=== PATIENT | male | born 1960 | race Caucasian/White ===

== ENCOUNTER 2016-03-11 06:38 | Emergency (ER) | payer OTHER ==
--- NOTE | 2016-03-11 07:54 | ER Document Report ---
HPI - HPI Patient complains to provider of: right shoulder re injure Onset: Other - wednesday Quality of pain: Achy Pain Level: 4 Context: 56 yo male reinjured right shoulder joint when reaching out with right arm to break fall from lower ladder. Associated Symptoms: None Exacerbated by: Movement Relieved by: Denies Similar symptoms previously: Yes Recently seen / treated by doctor: No - ROS ROS below otherwise negative: Yes Systems Reviewed and Negative: Yes All other systems reviewed and negative - REPRODUCTIVE Reproductive: DENIES: : - DERM Skin Color: Normal Past Medical History - General Information source: Patient - Social History Smoking Status: Never Smoker Chew tobacco use (# tins/day): No Frequency of alcohol use: None Drug Abuse: None Lives with: Family Family History: Reviewed & Not Pertinent Patient has suicidal ideation: No Patient has homicidal ideation: No - Past Medical History Cardiac Medical History: Reports: Hx Hypertension Neurological Medical History: Reports: Hx Seizures - 2 YRS AGO GI Medical History: Reports: Hx Cirrhosis, Hx Gastroesophageal Reflux Disease, Hx Hepatitis - with varices, Hx Ulcer Musculoskeltal Medical History: Reports Hx Arthritis Infectious Medical History: Reports: Hx Hepatitis - with varices Past Surgical History: Reports: Hx Abdominal Surgery - hernia repair, Hx Orthopedic Surgery - finger - Immunizations Hx Diphtheria, Pertussis, Tetanus Vaccination: Yes Hx Pneumococcal Vaccination: 03/08/12 Vertical Provider Document - CONSTITUTIONAL Agree With Documented VS: Yes Exam Limitations: No Limitations General Appearance: Mild Distress - INFECTION CONTROL TRAVEL OUTSIDE OF THE [place] IN LAST 30 DAYS: No - HEENT HEENT: Normocephalic - NECK Neck: Supple - RESPIRATORY O2 Sat by Pulse Oximetry: 96 - MUSCULOSKELETAL/EXTREMETIES Musculoskeletal/Extremeties: Tender - right deltoia and bicep, muscle and tendon insertion at bicepital groove. He also states it hurts inside the joint. n/v intact distally. - NEURO Level of Consciousness: Awake, Alert, Appropriate - DERM Integumentary: Warm, Dry, No Rash Course - Re-evaluation Re-evalutation: 03/11/16 08:37 X-rays negative - Vital Signs Vital signs: Temp Pulse Resp BP Pulse Ox 98 F 91 16 131/77 H 96 03/11/16 06:44 03/11/16 06:44 03/11/16 06:44 03/11/16 06:44 03/11/16 06:44 Procedures - Immobilization Right Arm Time completed: 08:38 Pre-Proc Neuro Vasc Exam: Normal Immobilizer type: Sling Performed by: PCT Post-Proc Neuro Vasc Exam: Normal Alignment checked and good: Yes Discharge - Discharge Clinical Impression: reinjure to right shoulder Rotator cuff injury Qualifiers: Encounter type: subsequent encounter Laterality: right Qualified Code(s): S46.001D - Unspecified injury of muscle(s) and tendon(s) of the rotator cuff of right shoulder, subsequent encounter Condition: Good Disposition: HOME, SELF-CARE Instructions: Sling as Treatment ([facility]), Oral Narcotic Medication ([facility]) Additional Instructions: see the orthopedic doctor for [facility] [address] [facility] [address] Prescriptions: Oxycodone HCl [Oxy-Ir 5 mg Tablet] 5 mg PO Q4HP PRN #15 tab PRN Reason:
[2016-03-11] MEDS ORDERED: OXYCODONE HCL IR 5 MG TABLET PO ONE (08:13)
[2016-03-11 09:07] VITALS: BP 126/68
== END 2016-03-11 09:05 | disposition home or self-care (01) ==
LOC: ER 06:38
DX: S46.001A Unspecified injury of muscle(s) and tendon(s) of the rotator cuff of right shoulder, initial encounter (principal); X58.XXXA Exposure to other specified factors, initial encounter
CPT/HCPCS: 99283

== ENCOUNTER 2016-09-27 07:38 | Emergency (ER) | payer SELFPAY ==
[2016-09-27 07:47] VITALS: BP 159/86
--- NOTE | 2016-09-27 08:45 | ER Document Report ---
ED Extremity Problem, Lower - General Information source: Patient TRAVEL OUTSIDE OF THE [place] IN LAST 30 DAYS: No - HPI Location: Foot - right Associated symptoms: Other - see above <SINGH ALSTON - Last Filed: 09/27/16 08:35> <EDUARDO GR - Last Filed: 09/27/16 09:44> - General Chief Complaint: Foot Pain Stated Complaint: RIGHT FOOT PAIN Time Seen by Provider: 09/27/16 08:30 Notes: Patient is a 56 year old male who presents to the ED with complaints of right foot pain. Patients states he injured his foot 3 weeks ago and has since reinjurred it. Patient states he stepped on a curb sideways and rolled his foot. Patient states he also stepped on a nail. Patient states he does a lot of walking and now has a blister on the bottom of that foot. Patient also states he has an abscess from a charlie nail on his right elbow. No other concerns or complaints at this time. Patient is a recovering alcoholic, states he was in A in [place] for 8 days , went to [place] over the weekend and was relapsed and began drinking Wednesday and Wednesday and returned to the area Wednesday night. Patient is currently homeless but paid for 2 nights in a hotel. (SINGH ALSTON) - Related Data Allergies/Adverse Reactions: No Known Allergies Allergy (Verified 09/27/16 07:45) Past Medical History - General Information source: Patient - Social History Smoking Status: Never Smoker Chew tobacco use (# tins/day): No Frequency of alcohol use: recovering alcoholic Drug Abuse: None Family History: Reviewed & Not Pertinent Patient has suicidal ideation: No Patient has homicidal ideation: No - Past Medical History Cardiac Medical History: Reports: Hx Hypertension Neurological Medical History: Reports: Hx Seizures - 2 YRS AGO Renal/ Medical History: Denies: Hx Peritoneal Dialysis GI Medical History: Reports: Hx Cirrhosis, Hx Gastroesophageal Reflux Disease, Hx Hepatitis - with varices, Hx Ulcer Musculoskeltal Medical History: Reports Hx Arthritis Psychiatric Medical History: Reports: Hx Depression Infectious Medical History: Reports: Hx Hepatitis - with varices Past Surgical History: Reports: Hx Abdominal Surgery - hernia repair, Hx Orthopedic Surgery - finger - Immunizations Hx Diphtheria, Pertussis, Tetanus Vaccination: Yes Hx Pneumococcal Vaccination: 03/08/12 <SINGH ALSTON - Last Filed: 09/27/16 08:35> Review of Systems - Review of Systems Constitutional: No symptoms reported EENT: No symptoms reported Cardiovascular: No symptoms reported Respiratory: No symptoms reported Gastrointestinal: No symptoms reported Genitourinary: No symptoms reported Male Genitourinary: No symptoms reported Musculoskeletal: See HPI, Other - right foot pain Skin: See HPI, Other - blister on bottom of right foot, abscess right elbow Hematologic/Lymphatic: No symptoms reported Neurological/Psychological: No symptoms reported <SINGH ALSTON - Last Filed: 09/27/16 08:35> Physical Exam - General General appearance: Appears well, Alert In distress: None - HEENT Head: Normocephalic, Atraumatic Eyes: Normal Extraocular movements intact: Yes Pupils: PERRL - Respiratory Respiratory status: No respiratory distress Breath sounds: Normal - Cardiovascular Rhythm: Regular Heart sounds: Normal auscultation Murmur: No - Abdominal Inspection: Normal Distension: No distension - Back Back: Normal - Extremities General upper extremity: Normal ROM, Other - abscess over right elbow with mild erythema, swelling and tenderness, no fluctuance or pus General lower extremity: Normal ROM, Other - tender to palpation mostly in soft tissue of lateral right foot distal 5th metatarsal - Neurological Neuro grossly intact: Yes - Psychological Associated symptoms: Normal affect, Normal mood - Skin Skin Temperature: Warm Skin Moisture: Dry Skin Color: Normal Skin irregularity: Abscess - right elbow, with tenderness, swelling, mild erythema, no fluctuance or puss, other - mid plantar surface around ball of right foot has blistered area that is starting to heal <SINGH ALSTON - Last Filed: 09/27/16 08:35> Course - Diagnostic Test Radiology reviewed: Image reviewed, Reports reviewed - There is no acute bony abnormality seen on x-ray <EDUARDO GR - Last Filed: 09/27/16 09:44> - Vital Signs Vital signs: Temp Pulse Resp BP Pulse Ox 97.9 F 97 20 159/86 H 97 09/27/16 07:44 09/27/16 07:44 09/27/16 07:44 09/27/16 07:46 09/27/16 07:44 Discharge <GAMALIELSINGH - Last Filed: 09/27/16 08:35> <EDUARDO GR - Last Filed: 09/27/16 09:44> - Discharge Clinical Impression: Abscess of elbow Foot ulcer, limited to breakdown of skin Qualifiers: Laterality: right Qualified Code(s): L97.511 - Non-pressure chronic ulcer of other part of right foot limited to breakdown of skin Right foot sprain Qualifiers: Encounter type: initial encounter Qualified Code(s): S93.601A - Unspecified sprain of right foot, initial encounter Condition: Stable Disposition: HOME, SELF-CARE Additional Instructions: The x-ray did not show any bony abnormalities. The painful area of your foot is probably related to a sprain as you described the injury. The ulcerated area on your foot appears to be healing nicely. We will start you on antibiotics for the abscessed area on your elbow. Keep the foot ulcer clean, dressed with Neosporin ointment. Try to stay off of the foot as much as possible. Take Tylenol for pain if needed. Follow-up with a local medical doctor if not improving. Prescriptions: Sulfamethoxazole/Trimethoprim [Bactrim Ds Tablet] 2 tab PO BID #28 tablet Scribe Attestation: 09/27/16 09:39 I personally performed the services described in the documentation, reviewed and edited the documentation which was dictated to the scribe in my presence, and it accurately records my words and actions. (EDUARDO GR) Scribe Documentation - Scribe Written by Aung:: aung Meek, 09/27/2016, 0837 acting as scribe for :: Jas <SINGH ALSTON - Last Filed: 09/27/16 08:35>
--- NOTE | 2016-09-27 09:31 | RADIOLOGY REPORT (SQ) ---
EXAM DESCRIPTION: FOOT RIGHT COMPLETE COMPLETED DATE/TIME: 09/27/2016 9:17 am REASON FOR STUDY: distal 5th MT pain COMPARISON: None. NUMBER OF VIEWS: Three views. TECHNIQUE: AP, lateral and oblique radiographic images acquired of the right foot. LIMITATIONS: None. FINDINGS: MINERALIZATION: Normal. BONES: No acute fracture or dislocation. No worrisome bone lesions. 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 SOFT TISSUES: No soft tissue swelling. No foreign body. OTHER: No other significant finding. IMPRESSION: NO RADIOGRAPHIC EVIDENCE OF ACUTE INJURY. TECHNICAL DOCUMENTATION: JOB ID: [id number] [employer]- All Rights Reserved
[2016-09-27] MEDS ORDERED: SULFAMETHOXAZOLE/TRIMETHOPRIM 800-160 MG TABLET PO ONE (09:40)
== END 2016-09-27 10:00 | disposition home or self-care (01) ==
LOC: ER 07:38
DX: L02.413 Cutaneous abscess of right upper limb (principal); L97.511 Non-pressure chronic ulcer of other part of right foot limited to breakdown of skin; S93.601A Unspecified sprain of right foot, initial encounter; X50.1XXA Overexertion from prolonged static or awkward postures, initial encounter; Z59.0 Homelessness; F10.20 Alcohol dependence, uncomplicated
CPT/HCPCS: 99284